=== PATIENT | male | born 1995 | race Caucasian/White ===

== ENCOUNTER 2017-01-04 10:34 | Emergency (ER) | payer OTHER ==
[~2017-01-04] VITALS: Ht 187.9 cm; Wt 68.0 kg
[~2017-01-04 10:34] MED LIST: MUCINEX DM 60 M1 TER PO; TEGRETOL200 MG PO; ZYRTEC10 MG PO
[2017-01-04] MEDS ORDERED: AUGMENTIN 875-875 MG PO (10:49)
== END 2017-01-04 12:11 | disposition home or self-care (01) ==
LOC: ED 10:34
DX: S61.011A Laceration without foreign body of right thumb without damage to nail, initial encounter (principal); F17.200 Nicotine dependence, unspecified, uncomplicated; Z91.040 Latex allergy status; Z88.6 Allergy status to analgesic agent; Z88.0 Allergy status to penicillin; W54.0XXA Bitten by dog, initial encounter; Y93.9 Activity, unspecified; Y92.9 Unspecified place or not applicable; Y99.9 Unspecified external cause status

== ENCOUNTER 2017-12-30 17:03 | Emergency (ER) | payer OTHER ==
[~2017-12-30] VITALS: Ht 185.4 cm; Wt 79.4 kg
[~2017-12-30 17:03] MED LIST changes: +AUGMENTIN 875-875 MG PO
[2017-12-30] MEDS ORDERED: PREDNISONE20 M1 PO (17:18)
== END 2017-12-30 17:23 | disposition home or self-care (01) ==
LOC: ED 17:03
DX: L23.7 Allergic contact dermatitis due to plants, except food (principal)